=== PATIENT | male | born 1950 | race Caucasian/White ===

== ENCOUNTER 2018-08-24 04:37 | Inpatient (IN) ==
[2018-08-24 05:58] LABS: INR 1.3
[2018-08-24 06:07] LABS: Basophils # 0.1 10*3/uL (0.0-0.2); Basophils % 0.9 % (0.0-0.8); Eosinophils # 0.3 10*3/uL (0.0-0.87); Eosinophils % 3.1 % (0.00-10.9); Hematocrit 30.8 VOL% (42.0-52.0); Hemoglobin 8.8 GM/DL (14.0-18.0); Immature Granulocytes % 0.4 %; Immature Granulocytes Absolute 0.04 #; Lymphocytes # 1.3 10*3/uL (1.4-4.0); Lymphocytes % 13.2 % (21.2-54.2); Mean Corpuscular HGB Conc 28.6 GM/DL (32-36); Mean Corpuscular Hemoglobin 23 PG (27-34); Mean Corpuscular Volume 78.8 FL (87-102); Mean Platelet Volume 9.3 FL (9.6-12.0); Monocytes # 1.2 10*3/uL (0.11-0.8); Monocytes % 12.3 % (1.7-12.7); Neutrophils # 6.9 10*3/uL (1.4-7.4); Neutrophils % 70.1 % (38.7-73.9); Platelet Count 220 T/CUMM (130-400); Red Blood Count 3.91 MC/CUMM (3.8-5.5); Red Cell Distribution Width 17.6 % (9.3-17.3); White Blood Count 9.9 T/CUMM (4-12)
[2018-08-24 06:09] LABS: Hypochromasia 1+; Ovalocytes Slight; Platelet Estimate Adequate
[2018-08-24 06:37] LABS: Albumin 3.5 G/DL (3.4-5.0); Bilirubin,Total 0.7 MG/DL (0.2-1.0); Calcium 8.7 MG/DL (8.5-10.1); Osmolality,Calculated 282.5 MOS/KG (273-304); Potassium 3.6 MMOL/L (3.5-5.1); Total Protein 7.4 G/DL (6.4-8.3)
[2018-08-24] MEDS ORDERED: FUROSEMIDE 40 MG/4 ML VIAL IV STA (06:58)
[2018-08-24] MEDS ORDERED: MAGNESIUM SULF RIDER 4 GM in PREMIX 1 EACH IV PRN (07:18)
[2018-08-24] MEDS ORDERED: ONDANSETRON 4 MG/2 ML VIAL IV PRN (07:18)
[2018-08-24] MEDS ORDERED: MAGNESIUM SULF RIDER 2 GM in PREMIX 1 EACH IV PRN (07:18)
[2018-08-24] MEDS ORDERED: NITROGLYCERIN SL 0.4 MG TABLET SL PRN (07:22)
[2018-08-24 08:06] LABS: Risk Ratio 2.98; Thyroid Stimulating Hormone 4.75 uIU/ml (0.358-3.74); VLDL CHOLESTEROL 17.2 MG/DL
[2018-08-24 08:10] LABS: % Iron Saturation 7.5 % (18-50)
[2018-08-24] MEDS ORDERED: diphenhydrAMINE CAP 25 MG CAPSULE PO PRN (08:32)
[2018-08-24] MEDS ORDERED: ACETAMINOPHEN 500 MG TABLET PO PRN (08:42)
[2018-08-24 08:52] LABS: Apearance,Urine CLEAR (Clear); Bilirubin,Urine Negative (Negative); Blood, Urine Negative (Negative); Glucose,Urine (UA) Negative (Negative); Ketones,Urine Negative (Negative); Mucus,Urine Occasional /LPF (Occasional); Nitrite,Urine Negative (Negative); Protein,Urine Negative; RBC,Urine 1 /HPF (0-4); Urine Color Yellow (Yellow); Urine Specific Gravity 1.011 (1.001-1.035); Urine Urobilinogen < 2.0 EU/DL (0.2-1.0); WBC,Urine <1 /HPF (0-6)
[2018-08-24] MEDS: FUROSEMIDE 40 MG/4 ML VIAL IV SCH ×2 (08:54→16:16)
[2018-08-24] MEDS: METOPROLOL TARTRATE 50 MG TABLET PO SCH ×2 (09:25→21:49)
[2018-08-24] MEDS: ROSUVASTATIN 20 MG TABLET PO SCH (09:31)
[2018-08-24] MEDS: AMIODARONE 200 MG TABLET PO SCH (09:31)
[2018-08-24] MEDS: ISOSORBIDE MONONITRATE 60 MG TABLET PO SCH (09:32)
[2018-08-24] MEDS: LISINOPRIL 20 MG TABLET PO SCH (09:32)
[2018-08-24] MEDS: DABIGATRAN 150 MG CAPSULE PO SCH ×2 (09:32→21:49)
[2018-08-24] MEDS: ASPIRIN EC 81 MG TABLET PO SCH (09:37)
[2018-08-24] MEDS: cefTRIAXone 1,000 MG VIAL IM SCH (09:58)
[2018-08-24] MEDS ORDERED: ACETAMINOPHEN 500 MG TABLET PO ONE (13:18)
[2018-08-25 05:42] LABS: Calcium 8.6 MG/DL (8.5-10.1); Potassium 3.9 MMOL/L (3.5-5.1)
[2018-08-25] MEDS: ISOSORBIDE MONONITRATE 60 MG TABLET PO SCH (10:38)
[2018-08-25] MEDS: ROSUVASTATIN 20 MG TABLET PO SCH (10:38)
[2018-08-25] MEDS: ASPIRIN EC 81 MG TABLET PO SCH (10:39)
[2018-08-25] MEDS: LISINOPRIL 20 MG TABLET PO SCH (10:39)
[2018-08-25] MEDS: AMIODARONE 200 MG TABLET PO SCH (10:40)
[2018-08-25] MEDS: METOPROLOL TARTRATE 50 MG TABLET PO SCH ×2 (10:40→21:31)
[2018-08-25] MEDS: DABIGATRAN 150 MG CAPSULE PO SCH (10:46)
[2018-08-25] MEDS: FUROSEMIDE 40 MG/4 ML VIAL IV SCH ×2 (10:48→16:48)
[2018-08-25] MEDS: cefTRIAXone 1,000 MG VIAL IM SCH (10:51)
[2018-08-26 04:43] LABS: Basophils # 0.1 10*3/uL (0.0-0.2); Basophils % 0.6 % (0.0-0.8); Eosinophils # 0.4 10*3/uL (0.0-0.87); Eosinophils % 4.8 % (0.00-10.9); Hematocrit 27.9 VOL% (42.0-52.0); Hemoglobin 8.1 GM/DL (14.0-18.0); Immature Granulocytes % 0.4 %; Immature Granulocytes Absolute 0.04 #; Lymphocytes # 1.8 10*3/uL (1.4-4.0); Lymphocytes % 20.4 % (21.2-54.2); Mean Corpuscular Hemoglobin 23 PG (27-34); Mean Corpuscular Volume 77.9 FL (87-102); Monocytes # 1.1 10*3/uL (0.11-0.8); Monocytes % 12.1 % (1.7-12.7); Neutrophils # 5.6 10*3/uL (1.4-7.4); Neutrophils % 61.7 % (38.7-73.9); Platelet Count 245 T/CUMM (130-400); Red Blood Count 3.58 MC/CUMM (3.8-5.5); Red Cell Distribution Width 17.3 % (9.3-17.3)
[2018-08-26 05:00] LABS: Calcium 8.6 MG/DL (8.5-10.1); Osmolality,Calculated 276.8 MOS/KG (273-304); Potassium 3.5 MMOL/L (3.5-5.1)
[2018-08-26] MEDS: ISOSORBIDE MONONITRATE 60 MG TABLET PO SCH (07:29)
[2018-08-26] MEDS ORDERED: cefTRIAXone 1,000 MG VIAL IV SCH (07:32)
[2018-08-26] MEDS ORDERED: POTASSIUM CHLORIDE RIDER 10 MEQ in PREMIX 1 EACH IV PRN (07:35)
[2018-08-26] MEDS ORDERED: DIAZEPAM 5 MG TABLET PO ONE (07:35)
[2018-08-26] MEDS ORDERED: diphenhydrAMINE CAP 25 MG CAPSULE PO ONE (07:35)
[2018-08-26] MEDS ORDERED: MAGNESIUM SULF RIDER 2 GM in PREMIX 1 EACH IV PRN (07:35)
[2018-08-26] MEDS ORDERED: DIAZEPAM 5 MG TABLET ONE (07:41)
[2018-08-26] MEDS ORDERED: diphenhydrAMINE CAP 50 MG CAPSULE ONE (07:41)
[2018-08-26] MEDS: ROSUVASTATIN 20 MG TABLET PO SCH ×2 (07:50→10:53)
[2018-08-26] MEDS: LISINOPRIL 20 MG TABLET PO SCH ×2 (07:51→10:55)
[2018-08-26] MEDS: ASPIRIN EC 81 MG TABLET PO SCH ×2 (07:51→10:53)
[2018-08-26] MEDS: METOPROLOL TARTRATE 50 MG TABLET PO SCH ×3 (07:52→21:36)
[2018-08-26] MEDS: AMIODARONE 200 MG TABLET PO SCH ×2 (07:53→21:36)
[2018-08-26] MEDS ORDERED: LIDOCAINE 1% 20 ML VIAL ONE (07:56)
[2018-08-26] MEDS ORDERED: MIDAZOLAM 2 MG/2 ML VIAL ONE (07:59)
[2018-08-26] MEDS ORDERED: fentaNYL 100 MCG/2 ML VIAL ONE (07:59)
[2018-08-26] MEDS ORDERED: SODIUM CHLORIDE 0.9% 1,000 ML IV SCH (09:30)
[2018-08-26] MEDS ORDERED: AMIODARONE INJ 150 MG in DEXTROSE 5% 100 ML IV ONE (10:00)
[2018-08-26] MEDS: cefTRIAXone 1,000 MG in SYRINGE 1 EACH IV SCH (10:06)
[2018-08-26] MEDS: ENOXAPARIN 80 MG/0.8 ML SYRINGE SUBCUT SCH ×2 (10:08→21:36)
[2018-08-26] MEDS: FUROSEMIDE 40 MG/4 ML VIAL IV SCH ×2 (10:49→17:20)
[2018-08-26 13:07] LABS: Folate 17.5 NG/ML (5.4-24.0)
[2018-08-26] MEDS ORDERED: traMADol 50 MG TABLET PO PRN (18:45)
[2018-08-27] MEDS: AMIODARONE 200 MG TABLET PO SCH ×3 (00:09→22:19)
[2018-08-27] MEDS: NIFEDIPINE 30 MG PO SCH ×4 (00:10→10:04)
[2018-08-27 04:26] LABS: Calcium 8.4 MG/DL (8.5-10.1); Osmolality,Calculated 275.8 MOS/KG (273-304); Potassium 3.3 MMOL/L (3.5-5.1)
[2018-08-27 04:31] LABS: Basophils # 0.1 10*3/uL (0.0-0.2); Basophils % 0.7 % (0.0-0.8); Eosinophils # 0.4 10*3/uL (0.0-0.87); Eosinophils % 4.1 % (0.00-10.9); Hematocrit 27.9 VOL% (42.0-52.0); Hemoglobin 8.2 GM/DL (14.0-18.0); Immature Granulocytes % 0.6 %; Immature Granulocytes Absolute 0.05 #; Lymphocytes # 1.3 10*3/uL (1.4-4.0); Mean Corpuscular HGB Conc 29.4 GM/DL (32-36); Mean Corpuscular Hemoglobin 23 PG (27-34); Mean Corpuscular Volume 78.8 FL (87-102); Mean Platelet Volume 9.9 FL (9.6-12.0); Monocytes % 11.3 % (1.7-12.7); Neutrophils % 68.3 % (38.7-73.9); Platelet Count 224 T/CUMM (130-400); Red Blood Count 3.54 MC/CUMM (3.8-5.5); Red Cell Distribution Width 17.3 % (9.3-17.3); White Blood Count 8.8 T/CUMM (4-12)
[2018-08-27] MEDS: POTASSIUM CHLORIDE 20 MEQ TABLET PO PRN ×3 (05:06→12:19)
[2018-08-27] MEDS: ROSUVASTATIN 20 MG TABLET PO SCH (09:53)
[2018-08-27] MEDS: ISOSORBIDE MONONITRATE 60 MG TABLET PO SCH (09:54)
[2018-08-27] MEDS: LOSARTAN 50 MG TABLET PO SCH (09:55)
[2018-08-27] MEDS: FUROSEMIDE 40 MG/4 ML VIAL IV SCH ×2 (09:55→17:25)
[2018-08-27] MEDS: ASPIRIN EC 81 MG TABLET PO SCH (09:55)
[2018-08-27] MEDS: cefTRIAXone 1,000 MG in SYRINGE 1 EACH IV SCH (09:55)
[2018-08-27] MEDS: ENOXAPARIN 80 MG/0.8 ML SYRINGE SUBCUT SCH ×2 (09:56→22:19)
[2018-08-27] MEDS: METOPROLOL TARTRATE 50 MG TABLET PO SCH ×2 (09:58→22:15)
[2018-08-28 04:22] LABS: Basophils # 0.1 10*3/uL (0.0-0.2); Basophils % 0.8 % (0.0-0.8); Eosinophils # 0.3 10*3/uL (0.0-0.87); Eosinophils % 3.7 % (0.00-10.9); Hematocrit 26.7 VOL% (42.0-52.0); Hemoglobin 7.7 GM/DL (14.0-18.0); Immature Granulocytes % 0.5 %; Immature Granulocytes Absolute 0.05 #; Lymphocytes # 1.5 10*3/uL (1.4-4.0); Lymphocytes % 16.2 % (21.2-54.2); Mean Corpuscular HGB Conc 28.8 GM/DL (32-36); Mean Corpuscular Hemoglobin 23 PG (27-34); Mean Corpuscular Volume 78.3 FL (87-102); Monocytes # 1.1 10*3/uL (0.11-0.8); Monocytes % 11.5 % (1.7-12.7); Neutrophils # 6.2 10*3/uL (1.4-7.4); Neutrophils % 67.3 % (38.7-73.9); Platelet Count 237 T/CUMM (130-400); Red Blood Count 3.41 MC/CUMM (3.8-5.5); Red Cell Distribution Width 17.4 % (9.3-17.3); White Blood Count 9.2 T/CUMM (4-12)
[2018-08-28 04:40] LABS: Calcium 8.5 MG/DL (8.5-10.1); Potassium 3.6 MMOL/L (3.5-5.1)
[2018-08-28] MEDS ORDERED: PROPOFOL 200 MG/20 ML VIAL IV ONE (07:38)
[2018-08-28] MEDS: ROSUVASTATIN 20 MG TABLET PO SCH (09:23)
[2018-08-28] MEDS: METOPROLOL TARTRATE 50 MG TABLET PO SCH ×2 (09:24→21:45)
[2018-08-28] MEDS: LOSARTAN 50 MG TABLET PO SCH (09:24)
[2018-08-28] MEDS: DABIGATRAN 150 MG CAPSULE PO SCH ×2 (09:24→21:45)
[2018-08-28] MEDS: ISOSORBIDE MONONITRATE 60 MG TABLET PO SCH (09:24)
[2018-08-28] MEDS: AMIODARONE 200 MG TABLET PO SCH ×2 (09:24→21:45)
[2018-08-28] MEDS: ASPIRIN EC 81 MG TABLET PO SCH (09:24)
[2018-08-28] MEDS: FUROSEMIDE 40 MG/4 ML VIAL IV SCH ×2 (09:26→16:04)
[2018-08-28] MEDS: cefTRIAXone 1,000 MG in SYRINGE 1 EACH IV SCH (09:32)
[2018-08-28] MEDS: POTASSIUM CHLORIDE 20 MEQ TABLET PO PRN (10:24)
[2018-08-28] MEDS: IRON (CARBONYL) 45 MG TABLET PO SCH (10:24)
[2018-08-28] MEDS: NIFEDIPINE 30 MG PO SCH (11:01)
[2018-08-28 11:20] LABS: Mycoplasma pneumoniae Ab Inter SEE COMMENTS; Mycoplasma pneumoniae Ab, IgG Positive (Negative); Mycoplasma pneumoniae Ab, IgM Negative (Negative)
[2018-08-29 05:46] LABS: Basophils # 0.1 10*3/uL (0.0-0.2); Basophils % 0.5 % (0.0-0.8); Eosinophils # 0.4 10*3/uL (0.0-0.87); Eosinophils % 4.6 % (0.00-10.9); Hemoglobin 7.9 GM/DL (14.0-18.0); Immature Granulocytes % 0.4 %; Immature Granulocytes Absolute 0.04 #; Lymphocytes % 11.4 % (21.2-54.2); Mean Corpuscular HGB Conc 29.3 GM/DL (32-36); Mean Corpuscular Hemoglobin 23 PG (27-34); Mean Corpuscular Volume 79.2 FL (87-102); Mean Platelet Volume 9.2 FL (9.6-12.0); Monocytes % 11.3 % (1.7-12.7); Neutrophils # 6.6 10*3/uL (1.4-7.4); Neutrophils % 71.8 % (38.7-73.9); Platelet Count 237 T/CUMM (130-400); Red Blood Count 3.41 MC/CUMM (3.8-5.5); Red Cell Distribution Width 17.3 % (9.3-17.3); White Blood Count 9.1 T/CUMM (4-12)
[2018-08-29 06:11] LABS: Calcium 8.8 MG/DL (8.5-10.1); Osmolality,Calculated 271.1 MOS/KG (273-304); Potassium 3.8 MMOL/L (3.5-5.1)
[2018-08-29] MEDS ORDERED: MULTIVITAMIN (BEROCCA) TABLET PO SCH (09:00)
[2018-08-29] MEDS: ASPIRIN EC 81 MG TABLET PO SCH (10:24)
[2018-08-29] MEDS: ISOSORBIDE MONONITRATE 60 MG TABLET PO SCH (10:24)
[2018-08-29] MEDS: DABIGATRAN 150 MG CAPSULE PO SCH (10:25)
[2018-08-29] MEDS: ROSUVASTATIN 20 MG TABLET PO SCH (10:25)
[2018-08-29] MEDS: AMIODARONE 200 MG TABLET PO SCH (10:25)
[2018-08-29] MEDS: METOPROLOL TARTRATE 50 MG TABLET PO SCH (10:26)
[2018-08-29] MEDS: IRON (CARBONYL) 45 MG TABLET PO SCH (10:26)
[2018-08-29] MEDS: LOSARTAN 50 MG TABLET PO SCH (10:26)
[2018-08-29] MEDS: FUROSEMIDE 40 MG/4 ML VIAL IV SCH (10:30)
[2018-08-29] MEDS: cefTRIAXone 1,000 MG in SYRINGE 1 EACH IV SCH (10:34)
[2018-08-29 11:57] VITALS: BP 104/53
[2018-08-29] MEDS: NIFEDIPINE 30 MG PO SCH (12:03)
[2018-08-29] MEDS ORDERED: FUROSEMIDE 40 MG TABLET PO SCH (16:00)
== END 2018-08-29 15:50 | disposition home or self-care (01) | DRG 286 ==
LOC: N.ED 04:37 → N.EDINP 07:18 → N.TELEN 14:00
PROVIDERS: ADMIT Family Medicine; ATTEND Family Medicine

== ENCOUNTER 2019-06-15 07:16 | Inpatient (IN) ==
[2019-06-15 08:06] LABS: Basophils # 0.1 10*3/uL (0.0-0.2); Basophils % 0.6 % (0.0-0.8); Eosinophils # 0.4 10*3/uL (0.0-0.87); Eosinophils % 3.8 % (0.00-10.9); Hematocrit 25.4 VOL% (42.0-52.0); Hemoglobin 8.6 GM/DL (14.0-18.0); Immature Granulocytes % 0.4 %; Immature Granulocytes Absolute 0.05 #; Lymphocytes # 1.8 10*3/uL (1.4-4.0); Lymphocytes % 15.3 % (21.2-54.2); Mean Corpuscular HGB Conc 33.9 GM/DL (32-36); Mean Corpuscular Volume 90.4 FL (87-102); Mean Platelet Volume 10.3 FL (9.6-12.0); Monocytes % 8.4 % (1.7-12.7); Neutrophils % 71.5 % (38.7-73.9); Platelet Count 200 T/CUMM (130-400); Red Blood Count 2.81 MC/CUMM (3.8-5.5); White Blood Count 11.5 T/CUMM (4-12)
[2019-06-15 08:25] LABS: Alanine Aminotransferase 68 U/L (16-61); Albumin 1.9 G/DL (3.4-5.0); Alkaline Phosphatase 162 U/L (45-117); Aspartate Amino Transferase 95 U/L (0-37); Blood Urea Nitrogen 54 MG/DL (7-18); Calcium 8.4 MG/DL (8.5-10.1); Estimated Glom Filtration Rate 15 ML/MIN; Glucose 101 MG/DL (74-106); Osmolality,Calculated 278.5 MOS/KG (273-304); Total Protein 7.6 G/DL (6.4-8.3)
[2019-06-15 09:20] LABS: Apearance,Urine CLEAR (Clear); Bilirubin,Urine Negative (Negative); Blood, Urine Negative (Negative); Glucose,Urine (UA) Negative (Negative); Hyaline Casts,Urine 14 /LPF (0-3); Ketones,Urine Negative (Negative); Mucus,Urine Occasional /LPF (Occasional); Nitrite,Urine Negative (Negative); Protein,Urine Negative; RBC,Urine <1 /HPF (0-4); Urine Color Yellow (Yellow); Urine Specific Gravity 1.013 (1.001-1.035); Urine Urobilinogen < 2.0 EU/DL (0.2-1.0); WBC,Urine <1 /HPF (0-6)
[2019-06-15] MEDS ORDERED: ONDANSETRON 4 MG/2 ML VIAL IV PRN (10:49)
[2019-06-15] MEDS ORDERED: POTASSIUM CHLORIDE 20 MEQ TABLET PO PRN (10:52)
[2019-06-15] MEDS ORDERED: FUROSEMIDE 40 MG TABLET PO PRN (10:52)
[2019-06-15] MEDS ORDERED: NITROGLYCERIN SL 0.4 MG TABLET SL PRN (10:52)
[2019-06-15] MEDS ORDERED: SODIUM CHLORIDE 0.9% 1,000 ML IV PRN (10:54)
[2019-06-15] MEDS: SODIUM CHLORIDE 0.45% 1,000 ML IV SCH ×2 (15:13→20:37)
[2019-06-15] MEDS: ALBUMIN 25% 25 GM in PREMIX 1 EACH IV SCH ×2 (15:13→22:17)
[2019-06-15] MEDS: DOCUSATE SODIUM 100 MG CAPSULE PO SCH ×2 (20:38→20:40)
[2019-06-15] MEDS: METOPROLOL TARTRATE 50 MG TABLET PO SCH (20:38)
[2019-06-16 01:44] LABS: Basophils # 0.1 10*3/uL (0.0-0.2); Basophils % 0.6 % (0.0-0.8); Eosinophils # 0.3 10*3/uL (0.0-0.87); Eosinophils % 2.6 % (0.00-10.9); Hematocrit 27.6 VOL% (42.0-52.0); Hemoglobin 9.6 GM/DL (14.0-18.0); Immature Granulocytes % 0.4 %; Immature Granulocytes Absolute 0.04 #; Lymphocytes # 1.1 10*3/uL (1.4-4.0); Lymphocytes % 11.6 % (21.2-54.2); Mean Corpuscular HGB Conc 34.8 GM/DL (32-36); Mean Corpuscular Volume 88.2 FL (87-102); Mean Platelet Volume 10.1 FL (9.6-12.0); Monocytes % 9.4 % (1.7-12.7); Neutrophils % 75.4 % (38.7-73.9); Platelet Count 136 T/CUMM (130-400); Red Blood Count 3.13 MC/CUMM (3.8-5.5); White Blood Count 9.6 T/CUMM (4-12)
[2019-06-16 02:00] LABS: Calcium 7.9 MG/DL (8.5-10.1)
[2019-06-16] MEDS ORDERED: traMADol 50 MG TABLET PO PRN (06:05)
[2019-06-16] MEDS: ALBUMIN 25% 25 GM in PREMIX 1 EACH IV SCH (06:21)
[2019-06-16 07:26] LABS: Albumin 2.3 G/DL (3.4-5.0); Bilirubin,Total 2.4 MG/DL (0.2-1.0); Calcium 8.2 MG/DL (8.5-10.1); Osmolality,Calculated 281.1 MOS/KG (273-304); Thyroid Stimulating Hormone 10.7 uIU/ml (0.358-3.74); Total Protein 7.2 G/DL (6.4-8.3)
[2019-06-16 08:28] LABS: Vitamin B12 1378 PG/ML (211-911)
[2019-06-16] MEDS ORDERED: LOSARTAN 25 MG TABLET PO SCH (09:00)
[2019-06-16] MEDS ORDERED: LACTULOSE 20 GM/30 ML UDCUP PO SCH (09:00)
[2019-06-16] MEDS ORDERED: ISOSORBIDE MONONITRATE 60 MG TABLET PO SCH (09:00)
[2019-06-16] MEDS ORDERED: PANTOPRAZOLE 40 MG TABLET PO SCH (09:00)
[2019-06-16] MEDS: DOCUSATE SODIUM 100 MG CAPSULE PO SCH ×2 (09:46→21:52)
[2019-06-16] MEDS: FERROUS SULFATE 325 MG TABLET PO SCH (09:46)
[2019-06-16] MEDS: PANTOPRAZOLE 40 MG TABLET PO SCH (09:47)
[2019-06-16] MEDS: METOPROLOL TARTRATE 50 MG TABLET PO SCH ×2 (09:47→20:51)
[2019-06-16 10:18] LABS: INR 1.4; PT Patient Result 14.9 SECS (9.6-12.2)
[2019-06-16] MEDS: cefTRIAXone 1,000 MG in SYRINGE 1 EACH IV SCH (11:20)
[2019-06-16] MEDS: SODIUM CHLORIDE 0.45% 1,000 ML IV SCH (11:28)
[2019-06-16] MEDS ORDERED: ALBUMIN 25% 50 GM in PREMIX 1 EACH IV ONE (11:49)
[2019-06-16] MEDS: LACTULOSE 20 GM/30 ML UDCUP PO SCH ×2 (14:04→21:52)
[2019-06-17 02:44] LABS: Basophils % 0.4 % (0.0-0.8); Eosinophils # 0.2 10*3/uL (0.0-0.87); Hematocrit 26.4 VOL% (42.0-52.0); Hemoglobin 8.8 GM/DL (14.0-18.0); Immature Granulocytes % 0.6 %; Immature Granulocytes Absolute 0.06 #; Lymphocytes # 0.9 10*3/uL (1.4-4.0); Lymphocytes % 8.1 % (21.2-54.2); Mean Corpuscular HGB Conc 33.3 GM/DL (32-36); Mean Corpuscular Volume 90.4 FL (87-102); Monocytes % 8.6 % (1.7-12.7); Neutrophils % 80.3 % (38.7-73.9); Platelet Count 130 T/CUMM (130-400); Red Blood Count 2.92 MC/CUMM (3.8-5.5); Red Cell Distribution Width 17.2 % (9.3-17.3); White Blood Count 10.5 T/CUMM (4-12)
[2019-06-17 02:51] LABS: INR 1.3; PT Patient Result 14.6 SECS (9.6-12.2)
[2019-06-17 03:12] LABS: Calcium 8.6 MG/DL (8.5-10.1); Osmolality,Calculated 273.7 MOS/KG (273-304)
[2019-06-17] MEDS: SODIUM CHLORIDE 0.45% 1,000 ML IV SCH (05:25)
[2019-06-17] MEDS: PANTOPRAZOLE 40 MG TABLET PO SCH (11:47)
[2019-06-17] MEDS: METOPROLOL TARTRATE 50 MG TABLET PO SCH ×2 (11:47→21:18)
[2019-06-17] MEDS: DOCUSATE SODIUM 100 MG CAPSULE PO SCH ×2 (11:47→21:17)
[2019-06-17] MEDS: FERROUS SULFATE 325 MG TABLET PO SCH (11:47)
[2019-06-17] MEDS: cefTRIAXone 1,000 MG in SYRINGE 1 EACH IV SCH (11:49)
[2019-06-17] MEDS: LACTULOSE 20 GM/30 ML UDCUP PO SCH ×3 (15:31→21:16)
[2019-06-17 16:49] LABS: Neutrophils,Peritoneal Fluid 16 %
[2019-06-17 16:50] LABS: RBC,Peritoneal Fluid 154 T/CUMM
[2019-06-17] MEDS ORDERED: ALBUMIN 25% 25 GM in PREMIX 1 EACH IV ONE (17:00)
[2019-06-17 18:30] LABS: Total Protein,Peritoneal Fluid 1.5 G/DL
[2019-06-18] MEDS: SODIUM CHLORIDE 0.45% 1,000 ML IV SCH ×3 (01:01→17:13)
[2019-06-18 02:42] LABS: Basophils % 0.4 % (0.0-0.8); Eosinophils # 0.2 10*3/uL (0.0-0.87); Eosinophils % 2.3 % (0.00-10.9); Hematocrit 25.4 VOL% (42.0-52.0); Hemoglobin 8.5 GM/DL (14.0-18.0); Immature Granulocytes % 0.6 %; Immature Granulocytes Absolute 0.06 #; Lymphocytes # 0.8 10*3/uL (1.4-4.0); Lymphocytes % 7.8 % (21.2-54.2); Mean Corpuscular HGB Conc 33.5 GM/DL (32-36); Mean Platelet Volume 10.5 FL (9.6-12.0); Monocytes % 11.9 % (1.7-12.7); Platelet Count 121 T/CUMM (130-400); Red Blood Count 2.76 MC/CUMM (3.8-5.5); Red Cell Distribution Width 17.1 % (9.3-17.3); White Blood Count 10.5 T/CUMM (4-12)
[2019-06-18 02:58] LABS: Calcium 8.3 MG/DL (8.5-10.1); Osmolality,Calculated 276.5 MOS/KG (273-304)
[2019-06-18] MEDS: METOPROLOL TARTRATE 50 MG TABLET PO SCH ×2 (09:45→21:15)
[2019-06-18] MEDS: FERROUS SULFATE 325 MG TABLET PO SCH (09:45)
[2019-06-18] MEDS: PANTOPRAZOLE 40 MG TABLET PO SCH (09:45)
[2019-06-18] MEDS: LACTULOSE 20 GM/30 ML UDCUP PO SCH ×3 (09:46→21:13)
[2019-06-18] MEDS: DOCUSATE SODIUM 100 MG CAPSULE PO SCH ×2 (09:46→21:15)
[2019-06-18] MEDS: cefTRIAXone 1,000 MG in SYRINGE 1 EACH IV SCH (13:20)
[2019-06-18] MEDS: DABIGATRAN 75 MG CAPSULE PO SCH (21:14)
[2019-06-19 05:13] LABS: Basophils % 0.2 % (0.0-0.8); Eosinophils # 0.3 10*3/uL (0.0-0.87); Eosinophils % 3.8 % (0.00-10.9); Hematocrit 24.3 VOL% (42.0-52.0); Hemoglobin 8.2 GM/DL (14.0-18.0); Immature Granulocytes % 0.5 %; Immature Granulocytes Absolute 0.04 #; Lymphocytes # 0.9 10*3/uL (1.4-4.0); Lymphocytes % 10.4 % (21.2-54.2); Mean Corpuscular HGB Conc 33.7 GM/DL (32-36); Mean Corpuscular Volume 89.7 FL (87-102); Mean Platelet Volume 10.1 FL (9.6-12.0); Monocytes % 11.2 % (1.7-12.7); Neutrophils % 73.9 % (38.7-73.9); Platelet Count 106 T/CUMM (130-400); Red Blood Count 2.71 MC/CUMM (3.8-5.5); Red Cell Distribution Width 16.9 % (9.3-17.3); White Blood Count 8.7 T/CUMM (4-12)
[2019-06-19 05:34] LABS: Albumin 2.4 G/DL (3.4-5.0); Bilirubin,Total 1.9 MG/DL (0.2-1.0); Calcium 7.9 MG/DL (8.5-10.1); Osmolality,Calculated 273.7 MOS/KG (273-304)
[2019-06-19] MEDS: SODIUM CHLORIDE 0.45% 1,000 ML IV SCH ×2 (05:39→19:25)
[2019-06-19] MEDS ORDERED: SODIUM CHLORIDE 0.9% 1,000 ML IV PRN (09:05)
[2019-06-19] MEDS ORDERED: PHENYLEPHRINE 1 MG/10 ML SYRINGE IV ONE (09:30)
[2019-06-19] MEDS ORDERED: LIDOCAINE 2% 5 ML VIAL ONE (09:30)
[2019-06-19] MEDS ORDERED: propofoL 200 MG/20 ML VIAL IV ONE (09:30)
[2019-06-19] MEDS: LACTATED RINGERS 1,000 ML IV SCH (10:23)
[2019-06-19] MEDS: LACTULOSE 20 GM/30 ML UDCUP PO SCH (10:24)
[2019-06-19] MEDS: DABIGATRAN 75 MG CAPSULE PO SCH ×2 (10:24→21:05)
[2019-06-19] MEDS: METOPROLOL TARTRATE 50 MG TABLET PO SCH ×2 (10:24→21:32)
[2019-06-19] MEDS: PANTOPRAZOLE 40 MG TABLET PO SCH (10:24)
[2019-06-19] MEDS: FERROUS SULFATE 325 MG TABLET PO SCH (10:25)
[2019-06-19] MEDS: DOCUSATE SODIUM 100 MG CAPSULE PO SCH ×2 (10:25→21:32)
[2019-06-19] MEDS: cefTRIAXone 1,000 MG in SYRINGE 1 EACH IV SCH (13:08)
[2019-06-20] MEDS: SODIUM CHLORIDE 0.45% 1,000 ML IV SCH (07:03)
[2019-06-20 08:09] VITALS: BP 95/52
[2019-06-20] MEDS: LACTATED RINGERS 1,000 ML IV SCH (08:28)
[2019-06-20] MEDS ORDERED: LACTULOSE 20 GM/30 ML UDCUP PO SCH (09:00)
[2019-06-20 09:06] LABS: Basophils # 0.1 10*3/uL (0.0-0.2); Basophils % 0.8 % (0.0-0.8); Eosinophils # 0.3 10*3/uL (0.0-0.87); Eosinophils % 3.5 % (0.00-10.9); Hematocrit 30.7 VOL% (42.0-52.0); Hemoglobin 10.2 GM/DL (14.0-18.0); Immature Granulocytes % 0.3 %; Immature Granulocytes Absolute 0.03 #; Lymphocytes # 1.1 10*3/uL (1.4-4.0); Lymphocytes % 12.9 % (21.2-54.2); Mean Corpuscular HGB Conc 33.2 GM/DL (32-36); Mean Corpuscular Volume 89.8 FL (87-102); Monocytes % 11.3 % (1.7-12.7); Neutrophils % 71.2 % (38.7-73.9); Platelet Count 117 T/CUMM (130-400); Red Blood Count 3.42 MC/CUMM (3.8-5.5); Red Cell Distribution Width 16.9 % (9.3-17.3); White Blood Count 8.8 T/CUMM (4-12)
[2019-06-20] MEDS: DABIGATRAN 75 MG CAPSULE PO SCH (09:17)
[2019-06-20] MEDS: METOPROLOL TARTRATE 50 MG TABLET PO SCH (09:18)
[2019-06-20] MEDS: PANTOPRAZOLE 40 MG TABLET PO SCH (09:18)
[2019-06-20] MEDS: FERROUS SULFATE 325 MG TABLET PO SCH (09:18)
[2019-06-20] MEDS: DOCUSATE SODIUM 100 MG CAPSULE PO SCH (09:19)
== END 2019-06-20 10:39 | disposition home or self-care (01) | DRG 441 ==
LOC: N.ED 07:16 → N.EDINP 10:49 → N.TELES 11:11
PROVIDERS: ADMIT Family Medicine; ATTEND Family Medicine

== ENCOUNTER 2019-08-06 08:21 | Inpatient (IN) ==
[2019-08-06 09:37] LABS: Basophils # 0.1 10*3/uL (0.0-0.2); Basophils % 0.8 % (0.0-0.8); Eosinophils # 0.3 10*3/uL (0.0-0.87); Eosinophils % 2.8 % (0.00-10.9); Hematocrit 29.3 VOL% (42.0-52.0); Immature Granulocytes % 0.7 %; Immature Granulocytes Absolute 0.08 #; Lymphocytes # 1.3 10*3/uL (1.4-4.0); Mean Corpuscular HGB Conc 34.1 GM/DL (32-36); Mean Corpuscular Volume 88.3 FL (87-102); Monocytes % 8.9 % (1.7-12.7); Neutrophils % 75.8 % (38.7-73.9); Platelet Count 125 T/CUMM (130-400); Red Blood Count 3.32 MC/CUMM (3.8-5.5); Red Cell Distribution Width 15.7 % (9.3-17.3)
[2019-08-06 10:00] LABS: Albumin 1.8 G/DL (3.4-5.0); Bilirubin,Total 1.4 MG/DL (0.2-1.0); Calcium 8.6 MG/DL (8.5-10.1); Osmolality,Calculated 267.2 MOS/KG (273-304)
[2019-08-06] MEDS ORDERED: ACETAMINOPHEN 325 MG TABLET PO PRN (10:17)
[2019-08-06 10:43] LABS: Apearance,Urine CLEAR (Clear); Bilirubin,Urine Negative (Negative); Blood, Urine Negative (Negative); Glucose,Urine (UA) Negative (Negative); Hyaline Casts,Urine 11 /LPF (0-3); Ketones,Urine Negative (Negative); Mucus,Urine Occasional /LPF (Occasional); Nitrite,Urine Negative (Negative); Protein,Urine Negative; RBC,Urine 1 /HPF (0-4); Urine Color Yellow (Yellow); WBC,Urine <1 /HPF (0-6)
[2019-08-06] MEDS: SODIUM CHLORIDE 0.9% 1,000 ML IV SCH (11:57)
[2019-08-06] MEDS ORDERED: NITROGLYCERIN SL 0.4 MG TABLET SL PRN (12:56)
[2019-08-06] MEDS: DOCUSATE SODIUM 100 MG CAPSULE PO SCH (21:03)
[2019-08-06] MEDS: RIFAXIMIN 550 MG TABLET PO SCH (21:03)
[2019-08-06] MEDS: METOPROLOL TARTRATE 25 MG TABLET PO SCH (21:03)
[2019-08-06] MEDS: DABIGATRAN 75 MG CAPSULE PO SCH (21:03)
[2019-08-06] MEDS: ONDANSETRON 4 MG/2 ML VIAL IV PRN (21:03)
[2019-08-07] MEDS: SODIUM CHLORIDE 0.9% 1,000 ML IV SCH ×2 (02:13→21:47)
[2019-08-07 05:47] LABS: INR 1.2; PT Patient Result 13.4 SECS (9.6-12.2)
[2019-08-07 06:01] LABS: Calcium 8.4 MG/DL (8.5-10.1); Osmolality,Calculated 270.8 MOS/KG (273-304)
[2019-08-07] MEDS ORDERED: ACETAMINOPHEN 325 MG TABLET PO PRN (07:30)
[2019-08-07] MEDS: DOCUSATE SODIUM 100 MG CAPSULE PO SCH ×2 (08:16→20:36)
[2019-08-07] MEDS: RIFAXIMIN 550 MG TABLET PO SCH ×2 (08:16→20:36)
[2019-08-07] MEDS: METOPROLOL TARTRATE 25 MG TABLET PO SCH ×2 (08:16→20:36)
[2019-08-07] MEDS: DABIGATRAN 75 MG CAPSULE PO SCH (08:18)
[2019-08-07] MEDS ORDERED: LACTULOSE 20 GM/30 ML UDCUP PO SCH (09:00)
[2019-08-07 15:58] LABS: % Iron Saturation 49.4 % (18-50)
[2019-08-07] MEDS: LACTULOSE 20 GM/30 ML UDCUP PO SCH ×2 (16:05→20:36)
[2019-08-07] MEDS: ONDANSETRON 4 MG/2 ML VIAL IV PRN (16:45)
[2019-08-07] MEDS: TEMAZEPAM 15 MG CAPSULE PO SCH (20:36)
[2019-08-08] MEDS: RIFAXIMIN 550 MG TABLET PO SCH ×2 (08:45→20:27)
[2019-08-08] MEDS: LACTULOSE 20 GM/30 ML UDCUP PO SCH ×3 (08:45→20:10)
[2019-08-08] MEDS: METOPROLOL TARTRATE 25 MG TABLET PO SCH ×2 (08:45→20:11)
[2019-08-08] MEDS: DOCUSATE SODIUM 100 MG CAPSULE PO SCH ×2 (08:45→20:28)
[2019-08-08 08:56] LABS: Basophils # 0.1 10*3/uL (0.0-0.2); Basophils % 1.1 % (0.0-0.8); Eosinophils # 0.4 10*3/uL (0.0-0.87); Hematocrit 29.5 VOL% (42.0-52.0); Hemoglobin 9.9 GM/DL (14.0-18.0); Immature Granulocytes % 0.4 %; Immature Granulocytes Absolute 0.04 #; Lymphocytes # 1.3 10*3/uL (1.4-4.0); Lymphocytes % 11.5 % (21.2-54.2); Mean Corpuscular HGB Conc 33.6 GM/DL (32-36); Mean Corpuscular Volume 90.8 FL (87-102); Mean Platelet Volume 9.8 FL (9.6-12.0); Monocytes % 7.7 % (1.7-12.7); Neutrophils % 75.3 % (38.7-73.9); Platelet Count 128 T/CUMM (130-400); Red Blood Count 3.25 MC/CUMM (3.8-5.5); Red Cell Distribution Width 15.7 % (9.3-17.3); White Blood Count 11.1 T/CUMM (4-12)
[2019-08-08 09:26] LABS: Albumin 1.9 G/DL (3.4-5.0); Bilirubin,Total 1.9 MG/DL (0.2-1.0); Calcium 8.3 MG/DL (8.5-10.1); Osmolality,Calculated 278.2 MOS/KG (273-304)
[2019-08-08 16:14] LABS: Glucose,Peritoneal Fluid 143 MG/DL; LDH,Peritoneal Fluid 53 U/L; Total Protein,Body Fluid < 2.0 G/DL
[2019-08-08 17:24] LABS: Neutrophils,Peritoneal Fluid 5 %; RBC,Peritoneal Fluid 367 T/CUMM
[2019-08-08] MEDS: TEMAZEPAM 15 MG CAPSULE PO SCH (20:27)
[2019-08-08] MEDS: SODIUM CHLORIDE 0.9% 1,000 ML IV SCH (20:30)
[2019-08-09] MEDS: METOPROLOL TARTRATE 25 MG TABLET PO SCH (09:23)
[2019-08-09] MEDS: RIFAXIMIN 550 MG TABLET PO SCH (09:24)
[2019-08-09] MEDS: DOCUSATE SODIUM 100 MG CAPSULE PO SCH (09:24)
[2019-08-09] MEDS: LACTULOSE 20 GM/30 ML UDCUP PO SCH (11:05)
[2019-08-09 11:42] VITALS: BP 92/52
== END 2019-08-09 13:35 | disposition home or self-care (01) | DRG 442 ==
LOC: N.ED 08:21 → N.EDINP 08:21 → N.2E 11:35
PROVIDERS: ADMIT Family Medicine; ATTEND Family Medicine